=== PATIENT | female | born 1975 | race Caucasian/White ===

== ENCOUNTER 2017-06-20 15:54 | Emergency (ER) | payer OTHER | END 2017-06-20 18:04 | disposition home or self-care (01) | LOC: FTE 15:54 | DX: L02.415 Cutaneous abscess of right lower limb (principal) | CPT/HCPCS: 10060; 99283-25 ==

== ENCOUNTER 2017-10-22 11:08 | Emergency (ER) | payer OTHER ==
[2017-10-22] MEDS ORDERED: CLINDAMYCIN 600 MG/D5W (PMX) 50 ML IVPB (12:35)
[2017-10-22] MEDS ORDERED: LIDOCAINE 1% (MDV) 20 ML INJ SC (13:00)
[2017-10-22] MEDS: LIDOCAINE 1% (MDV) 10 ML INJ INJ (13:00)
[2017-10-22] MEDS: CLINDAMYCIN 600 MG/D5W (PMX) 50 ML IVPB (13:10)
== END 2017-10-22 14:17 | disposition home or self-care (01) ==
LOC: FTE 14:17
DX: L02.211 Cutaneous abscess of abdominal wall (principal)
CPT/HCPCS: 10061; 96374; 99284-25

== ENCOUNTER 2017-10-24 12:29 | Emergency (ER) | payer OTHER | END 2017-10-24 12:54 | disposition home or self-care (01) | LOC: E/R 12:29 | DX: Z48.01 Encounter for change or removal of surgical wound dressing (principal) | CPT/HCPCS: 99281; Z7502 ==

== ENCOUNTER 2017-10-27 11:54 | Emergency (ER) | payer OTHER | END 2017-10-27 13:20 | disposition home or self-care (01) | LOC: FTE 11:54 | DX: Z48.01 Encounter for change or removal of surgical wound dressing (principal); Z87.891 Personal history of nicotine dependence | CPT/HCPCS: 99281; Z7502 ==

== ENCOUNTER 2017-10-30 13:15 | Emergency (ER) | payer OTHER | END 2017-10-30 14:34 | disposition home or self-care (01) | LOC: E/R 13:15 | DX: Z48.01 Encounter for change or removal of surgical wound dressing (principal) | CPT/HCPCS: 99281 ==